=== PATIENT | female | born 1990 | race Caucasian/White ===

== ENCOUNTER 2019-09-26 12:56 | Emergency (ER) | payer BC, OTHER ==
--- NOTE | 2019-09-26 13:32 | EDM.PDOC ---
ED HPI GENERAL MEDICAL PROBLEM - General Chief Complaint: Head Injury Stated Complaint: HIT HEAD Time Seen by Provider: 09/26/19 13:20 Source of Information: Reports: Patient History Limitations: Reports: No Limitations - History of Present Illness INITIAL COMMENTS - FREE TEXT/NARRATIVE: Was at [employer] for her work when she got slammed on the padded floor yesterday. [place] immediate pain in the occipital region , headache , fogginess , nausea and unsteady . States she moved out and rested for about 10 mins , then went back in to continue with 2 more activities since then she has had nausea and lightheadedness . did take Excedrin migraine overnight . Was not able to sleep well due to feeling foggy , nauseated. Had to get up about 2 times in the night. Father did check in on her this am still feels nauseated , has light headache and pain in the back of her head , no blurred vision , no numbness or tingling in the arms or legs noted Onset: Sudden Onset Date: 09/25/19 Duration: Day(s): (2), Constant Location: Reports: Head, Neck Quality: Reports: Ache Severity: Moderate Improves with: Reports: None Worsens with: Reports: None Context: Reports: Activity Headache Pain Score (Numeric/FACES): 6 - Related Data Allergies Allergy/AdvReac Type Severity Reaction Status Date / Time No Known Allergies Allergy Verified 12/16/14 18:13 Home Meds: Home Meds Ondansetron [Zofran ODT] 4 mg PO Q6H PRN #20 tab.dis 09/26/19 [Rx] clonazePAM [Klonopin] 0.5 mg PO ASDIRECTED PRN 09/26/19 [History] tiZANidine [Zanaflex] 4 mg PO Q6H PRN #30 tab 09/26/19 [Rx] Past Medical History HEENT History: Reports: None Cardiovascular History: Reports: None Respiratory History: Reports: None Gastrointestinal History: Reports: None Genitourinary History: Reports: None 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 AUTOMATIC History: Reports: None Musculoskeletal History: Reports: None Neurological History: Reports: None Psychiatric History: Reports: Anxiety, Depression Endocrine/Metabolic History: Reports: None Hematologic History: Reports: None Immunologic History: Reports: None Oncologic (Cancer) History: Reports: None Dermatologic History: Reports: None - Past Surgical History Head Surgeries/Procedures: Reports: None HEENT Surgical History: Reports: Oral Surgery Cardiovascular Surgical History: Reports: None Respiratory Surgical History: Reports: None GI Surgical History: Reports: None Female Surgical History: Reports: Breast Implant Neurological Surgical History: Reports: None Musculoskeletal Surgical History: Reports: None Oncologic Surgical History: Reports: None Social & Family History - Tobacco Use Smoking Status *Q: Never Smoker - Recreational Drug Use Drug Use in Last 12 Months: No ED ROS GENERAL - Review of Systems Review Of Systems: See Below Constitutional: Reports: No Symptoms, Fatigue HEENT: Denies: Ear Pain, Hearing Loss, Nose Pain Respiratory: Reports: No Symptoms Cardiovascular: Reports: No Symptoms Endocrine: Reports: No Symptoms Musculoskeletal: Reports: Neck Pain (mid posterior neck with radiation to the right shoulder blade), Shoulder Pain (left sided ), Muscle Pain, Muscle Stiffness (all over , from activities done yesterday) Skin: Reports: No Symptoms Neurological: Reports: Confusion, Dizziness, Weakness. Denies: Paresthesia, Syncope, Tremors, Trouble Speaking, Difficulty Walking, Change in Speech, Gait Disturbance Psychiatric: Denies: Agitation, Anxiety Immunologic: Reports: No Symptoms ED EXAM, HEAD INJURY - Physical Exam Exam: See Below Exam Limited By: No Limitations General Appearance: Alert, WD/WN, No Apparent Distress Head: Atraumatic, Normocephalic, Scalp Tenderness (in the occipital region on palpation), Sinus Tenderness. No: Facial Tenderness Nexus Criteria: No: Posterior, Midline Cervical Tenderness, Evidence of Intoxication, Altered Level of Consciousness, Focal Neurological Deficit, Painful Distraction Injuries Eyes: Bilateral Eye: EOMI, Normal Fundi, PERRL Ears: Normal External Exam, Normal TMs Nose: Normal Inspection Throat/Mouth: Normal Inspection Neck: Full Range of Motion, Muscle Spasm (on the right side of the neck), Paraspinous Muscle Tender, Tender Lateral (right side). 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 No: EOM Palsy, Motor Weakness, Disoriented x 3 DTR: 2+: Bicep (R), Bicep (L), Patella (R), Patella (L) Skin: Normal Color, Warm/Dry - [place] Coma Score Best Eye Response ([place]): (4) Open Spontaneously Best Verbal Response ([place]): (5) Oriented Best Motor Response ([place]): (6) Obeys Commands Course - Vital Signs Text/Narrative:: discussed with pt , will continue with observation , off work for 5 days, FU with PCP . Avoid use of electronics , TV. No excessive activities that would aggravate injury . No NSAID or aspirin CT head if symptoms get worse Last Recorded V/S: Last Vital Signs Temp 36.5 C 09/26/19 13:04 Pulse 79 09/26/19 13:04 Resp 15 09/26/19 13:04 BP 129/80 09/26/19 13:04 Pulse Ox 100 09/26/19 13:04 Departure - Departure Time of Disposition: 02:30 Disposition: Home, Self-Care 01 Clinical Impression: Concussion with mental confusion or disorientation without loss of consciousness, Muscle spasms of neck, Dizziness and giddiness, Headache - Discharge Information *PRESCRIPTION DRUG MONITORING PROGRAM REVIEWED*: Not Applicable *COPY OF PRESCRIPTION DRUG MONITORING REPORT IN PATIENT SAILAJA: Not Applicable Instructions: Head Injury, Adult, [id number], Post-Concussion Syndrome, Muscle Cramps and Spasms, Concussion, Adult, [id number] Referrals: Lala Douglas [facility]TER FOURDRINIER [Primary Care Provider] - Forms: ED Department Discharge Care Plan Goals: 1) Cold compress to affected part of scalp 20mins 3 times daily , then switch to heat after 48 hrs 2) Avoid exercise and excessive movements for at least 5 days or till you are seen by your PCP 3) No NSAID, aspirin, take tylenol 1000mg 3 times a day as needed till seen by PCP 4) Off work for at least 5 days 5) make appointment to FU with your pCP Sepsis Event Note - Evaluation Sepsis Screening Result: No Definite Risk - Focused Exam Vital Signs: Vital Signs Temp Pulse Resp BP Pulse Ox 09/26/19 13:04 36.5 C 79 15 129/80 100 Date Exam was Performed: 09/26/19 Time Exam was Performed: 13:58
[2019-09-26] MEDS ORDERED: Ondansetron 8 MG Tab.DIS PO ONE (14:01)
[2019-09-26 14:31] VITALS: BP 119/82; PULSE 74
== END 2019-09-26 14:43 | disposition home or self-care (01) ==
LOC: FB.ED 12:56
DX: S06.0X0A Concussion without loss of consciousness, initial encounter (principal); R41.0 Disorientation, unspecified; R25.2 Cramp and spasm; Z79.899 Other long term (current) drug therapy; F41.9 Anxiety disorder, unspecified; F32.9 Major depressive disorder, single episode, unspecified; W22.09XA Striking against other stationary object, initial encounter; Y92.89 Other specified places as the place of occurrence of the external cause; Y93.89 Activity, other specified; Y99.0 Civilian activity done for income or pay
CPT/HCPCS: 99283; A9270-GY